=== PATIENT | male | born 1990 | race Two or more races ===

== ENCOUNTER 2023-04-18 04:35 | Emergency (ER) | payer OTHER ==
[~2023-04-18] VITALS: Ht 177.8 cm; Wt 140.4 kg
[2023-04-18 04:45] VITALS: BP 113/76; TEMP 98.3
[2023-04-18] MEDS ORDERED: diphenhdrAMINE HCL 50 MG/1 ML VL IM ONE (05:00)
[2023-04-18] MEDS ORDERED: methylPREDNISolone SOD SUCC 125 MG/2 ML VL IM ONE (05:00)
[2023-04-18 05:10] VITALS: PULSE 60; RESP 18; O2SAT 98
[2023-04-18] MEDS ORDERED: METH4PAK PO (07:09)
[2023-04-18] MEDS ORDERED: CEPH500C PO (07:09)
== END 2023-04-18 12:38 | disposition home or self-care (01) ==
LOC: ER 04:35
DX: T78.40XA Allergy, unspecified, initial encounter (principal); R23.8 Other skin changes; Z79.899 Other long term (current) drug therapy; Z91.010 Allergy to peanuts; Z91.040 Latex allergy status; Z91.030 Bee allergy status; Y92.89 Other specified places as the place of occurrence of the external cause
CPT/HCPCS: 96372; 99284; J1200; J2930